=== PATIENT | female | born 1965 | race American Indian/Alaskan Native ===

== ENCOUNTER 2019-08-18 09:47 | Inpatient (IN) | payer MEDICARE ==
[2019-08-18 10:24] LABS: Hematocrit 38.7 % (30.3-42.9); Hemoglobin 13.2 gm/dl (10.1-14.3); Mean Corpuscular HGB Conc 34 % (30-34); Mean Corpuscular Volume 96 fl (79-97); Platelet Count 230 K/mm3 (140-440); Red Blood Count 4.02 M/mm3 (3.65-5.03); Red Cell Distribution Width 14.4 % (13.2-15.2)
--- NOTE | 2019-08-18 10:29 | Short Stay Summary ---
Short Stay Documentation Date of service: 08/18/19 Narrative H&P: Left 5th ulcer with gangrene - History Principal diagnosis: PAD with left toe ulcer H&P: obtained from office Past Medical History: arthritis, diabetes, hyperlipidemia Past Surgical History: Other (Arteriogram) - Allergies and Medications Current Medications: Allergies No Known Allergies Allergy (Unverified 05/12/14 10:37) Home Medications Medication Instructions Recorded Confirmed Last Taken Type Acetaminophen/Codeine [Tylenol #3] 1 tab PO Q6H PRN #14 tab 01/22/15 Unknown Rx Ibuprofen [Motrin] 600 mg PO Q8H PRN #60 tablet 01/22/15 Unknown Rx Sulfamethoxazole/Trimethoprim 1 each PO BID #20 tablet 01/22/15 Unknown Rx [Bactrim DS TAB] Active Medications Sodium Chloride (Nacl 0.9% 500 Ml) 500 mls @ 50 mls/hr IV DIRECT AELXEI - Physical exam General appearance: no acute distress HEENT: PERRLA Lungs: Clear to auscultation Breasts: deferred Heart: Regular rate Gastrointestinal: normal Female Genitourinary: deferred Rectal Exam: deferred Extremities: No edema, abnormal (Bilateral DP 1+. Non-palpable left PT. 1+ right PT. Left 5th toe dry gangrene) Neurological: Normal speech, Sensation intact - Brief post op/procedure progress note Date of procedure: 08/18/19 Pre-op diagnosis: Left 5th ulcer and gangrene Post-op diagnosis: same Procedure: Left arteriogram with revascularization tPA infusion with EKOS overnight. Anesthesia: MAC Estimated blood loss: minimal Pathology: none Condition: stable - Hospital course Hospital course: Admit to ICU for infustion of tPA - Disposition Condition at discharge: Undetermined Short Stay Discharge Plan Follow up with: BABAK DOTY MD [Primary Care Provider] - 7 Days
[2019-08-18] MEDS: SODIUM CHLORIDE 0.9% 500 ML 500 ML IV SCH ×2 (10:35→11:08)
[2019-08-18 10:39] LABS: Calcium 9.8 mg/dL (8.4-10.2)
--- NOTE | 2019-08-18 10:50 | Anesthesia Consultation ---
Anesthesia Consult and Med Hx Date of service: 08/18/19 - Airway Anesthetic Teeth Evaluation: Edentulous ROM Head & Neck: Adequate Mental/Hyoid Distance: Adequate Mallampati Class: Class II Intubation Access Assessment: Probably Good - Pre-Operative Health Status ASA Pre-Surgery Classification: ASA3 Proposed Anesthetic Plan: MAC - Pulmonary Hx Smoking: Yes (1 pack/day x 30 years) Hx Asthma: Yes - Cardiovascular System Hx Hypertension: Yes Hx Coronary Artery Disease: No (high cholesterol) Hx Peripheral Vascular Disease: Yes - Central Nervous System Hx Psychiatric Problems: Yes (depression/anxiety) - Endocrine Hx Insulin Dependent Diabetes: Yes - Other Systems Hx Cancer: No
[2019-08-18] MEDS ORDERED: INSULIN REGULAR, HUMAN 100 UNITS/1 ML SUB-Q ONE (10:51)
[2019-08-18 10:52] LABS: INR 0.97 (0.87-1.13)
[2019-08-18 10:53] LABS: Partial Thromboplastin Time 27.5 Sec. (24.2-36.6)
--- NOTE | 2019-08-18 10:53 | Anesthesia Day of Surgery ---
Anesthesia Day of Surgery - Day of Surgery Patient Examined: Yes Patient H&P Reviewed: Yes Patient is NPO: Yes
[2019-08-18] MEDS ORDERED: INSULIN REGULAR, HUMAN 100 UNITS/1 ML ONE (10:55)
[2019-08-18] MEDS ORDERED: HEPARIN/NS 5000 UNIT/500ML 1,000 ML IR ONE (11:30)
[2019-08-18] MEDS ORDERED: LIDOCAINE MPF (2%) 20 MG/1 ML VIAL 5 ML ONE (11:38)
[2019-08-18] MEDS ORDERED: MIDAZOLAM 2 MG/2 ML INJ ONE (11:38)
[2019-08-18] MEDS ORDERED: HYDROmorphone 1 MG/1 ML INJ ONE (11:38)
[2019-08-18] MEDS: LIDOCAINE 1%/EPINEPHRINE 1:100,000 VIAL (20 ML) INFILTRATI ONE ×3 (11:48→14:01)
[2019-08-18] MEDS: HEPARIN 10,000 UNITS/10 ML VIAL ONE ×6 (12:17→16:09)
[2019-08-18] MEDS ORDERED: HEPARIN/NS 5000 UNIT/500ML 500 ML IR ONE ×2 (14:01→14:36)
[2019-08-18] MEDS ORDERED: NITROGLYCERIN SYRINGE 3 ML ONE ×2 (15:12→15:57)
[2019-08-18] MEDS ORDERED: HEPARIN 10,000 UNITS/10 ML VIAL ONE (16:09)
[2019-08-18] MEDS ORDERED: ceFAZolin/Water 2 GM/20 ML 2 GM/20 ML SYRINGE IV ONE (16:19)
[2019-08-18] MEDS ORDERED: SODIUM CHLORIDE 0.9% 1000 ML 1,000 ML ONE (16:21)
[2019-08-18] MEDS ORDERED: ALTEPLASE 2 MG INJ ONE (16:30)
[2019-08-18] MEDS ORDERED: SODIUM CHLORIDE 0.9% 1000 ML 1,000 ML EKOSCLUMEN SCH (16:30)
[2019-08-18] MEDS ORDERED: SODIUM CHLORIDE 0.9% 1000 ML 1,000 ML SHEATH SCH (16:30)
[2019-08-18] MEDS ORDERED: WATER FOR INJ Sterile (PF) 10 ML ONE (16:30)
[2019-08-18] MEDS: ALTEPLASE 2 MG INJ ONE (16:35)
[2019-08-18] MEDS ORDERED: ALTEPLASE 20 MG in SODIUM CHLORIDE 0.9% 500 ML 500 ML EKOSDLUMEN SCH (17:00)
[2019-08-18] MEDS ORDERED: HEPARIN/ 0.45% NACL DRIP 25,000 UNIT/500 ML BAG SHEATH SCH (17:00)
--- NOTE | 2019-08-18 17:08 | History and Physical Report ---
History of Present Illness Date of examination: 08/18/19 Date of admission: 08/18/19 16:48 Chief complaint: Left 5th toe ulcer/gangrene History of present illness: Patient has 3 month history of progressive ulceration and gangrene of left 5th following having a pedicure. Has not been healing. Has associated pain. Underwent attempted revascularization procedure today in slab inspector with atherectomy and balloon angioplasty. Evidence for persistent thrombus in the lef t AT therefore infustion of tPA with EKOS was elected overnight. Past History Past Medical History: arthritis, diabetes, hyperlipidemia Past Surgical History: Other (Arteriogram) Social history: single, smoking Medications and Allergies Allergies Allergy/AdvReac Type Severity Reaction Status Date / Time No Known Allergies Allergy Unverified 05/12/14 10:37 Home Medications Medication Instructions Recorded Confirmed Last Taken Type Pen Needle, Diabetic [Pen Needle] 34 mg SUB-Q TID 08/18/19 08/18/19 08/17/19 History Sertraline [Zoloft] 100 mg PO QDAY 08/18/19 08/18/19 08/17/19 History 1 tab Simvastatin 10 mg PO DAILY 08/18/19 08/18/19 08/17/19 History 1 tab Triamterene/Hydrochlorothiazid 12.5 mg PO DAILY 08/18/19 08/18/19 08/17/19 History [Triamterene-Hctz 37.5-25 mg Tb] 1 tab glipiZIDE [Glucotrol] 10 mg PO DAILY 08/18/19 08/18/19 08/17/19 History 1 tab levoFLOXacin [Levofloxacin] 500 mg PO DAILY 08/18/19 08/18/19 08/17/19 History 1 tab Active Meds: Active Medications Sodium Chloride (Nacl 0.9% 500 Ml) 500 mls @ 50 mls/hr IV DIRECT ALEXEI Last Admin: 08/18/19 11:08 Dose: 50 mls/hr Documented by: Alteplase, Recombinant 20 mg/ (Sodium Chloride) 500 mls @ 25 mls/hr EKOSDLUMEN DIRECT ALEXEI Sodium Chloride (Nacl 0.9% 1000 Ml) 1,000 mls @ 30 mls/hr SHEATH DIRECT ALEXEI Sodium Chloride (Nacl 0.9% 1000 Ml) 1,000 mls @ 35 mls/hr EKOSCLUMEN DIRECT ALEXEI Heparin Sodium/Sodium Chloride (Heparin/ 0.45% Nacl-25,000 Unit/500 Ml) 25,000 unit in 500 mls @ 10 mls/hr SHEATH DIRECT ALEXEI; Protocol Review of Systems All systems: negative - Cardiovascular other (Diminished pulses in her left foot. Left 5th toe and base dry gangrene.) Exam Vital Signs Resp 16 08/18/19 10:24 Results - Results Labs: Diabetes panel 08/18/19 Range/Units 10:17 Sodium 138 (137-145) mmol/L Potassium 4.8 (3.6-5.0) mmol/L Chloride 100.8 (98-107) mmol/L Carbon Dioxide 26 (22-30) mmol/L BUN 22 H (7-17) mg/dL Creatinine 1.2 (0.7-1.2) mg/dL Glucose 318 H (65-100) mg/dL Calcium 9.8 (8.4-10.2) mg/dL Calcium panel 08/18/19 Range/Units 10:17 Calcium 9.8 (8.4-10.2) mg/dL Pituitary panel 08/18/19 Range/Units 10:17 Sodium 138 (137-145) mmol/L Potassium 4.8 (3.6-5.0) mmol/L Chloride 100.8 (98-107) mmol/L Carbon Dioxide 26 (22-30) mmol/L BUN 22 H (7-17) mg/dL Creatinine 1.2 (0.7-1.2) mg/dL Glucose 318 H (65-100) mg/dL Calcium 9.8 (8.4-10.2) mg/dL Adrenal panel 08/18/19 Range/Units 10:17 Sodium 138 (137-145) mmol/L Potassium 4.8 (3.6-5.0) mmol/L Chloride 100.8 (98-107) mmol/L Carbon Dioxide 26 (22-30) mmol/L BUN 22 H (7-17) mg/dL Creatinine 1.2 (0.7-1.2) mg/dL Glucose 318 H (65-100) mg/dL Calcium 9.8 (8.4-10.2) mg/dL Assessment and Plan 1. Left 5th toe ulcer with dry gangrene. 2. Extensive peripheral vascular disease 3. Distal thrombosis of the anterior tibial artery- tpa infusion with EKOS overnight. 4. Re-evaluate in the morning for further intervention if needed.
[2019-08-18] MEDS ORDERED: HEPARIN/ 0.45% NACL DRIP 25,000 UNIT/500 ML BAG ONE (17:09)
--- NOTE | 2019-08-18 17:52 | Post Anesthesia Evaluation ---
- Post Anesthesia Evaluation Patient Participated: Yes Airway Patent: Yes Stable Respiratory Function: Yes Nausea/Vomiting: No Temp > 96.8F: Yes Pain Manageable: Yes Adequeate Hydration: Yes Anesthesia Complications: No Other Comments: Patient transported to ICU (for overnight monitoring of intra- arterial catheter per proceduralist orders) with monitors, VS stable, awake and alert. See anes record.
[2019-08-18] MEDS: MORPHINE 4 MG/1 ML INJ IV PRN ×2 (19:45→23:59)
[2019-08-18] MEDS: ONDANSETRON 4 MG/2 ML INJ IV PRN ×2 (19:50→23:59)
[2019-08-18] MEDS ORDERED: NON-FORMULARY EACH (Simvastatin [Simvastatin] 10 MG) PO SCH (20:30)
[2019-08-18 21:01] LABS: Hematocrit 33.2 % (30.3-42.9); Hemoglobin 11.9 gm/dl (10.1-14.3); Mean Corpuscular HGB Conc 36 % (30-34); Mean Corpuscular Volume 96 fl (79-97); Platelet Count 210 K/mm3 (140-440); Red Blood Count 3.46 M/mm3 (3.65-5.03); Red Cell Distribution Width 14.5 % (13.2-15.2)
[2019-08-18] MEDS: PRAVASTATIN 20 MG TAB PO SCH (21:24)
[2019-08-18] MEDS: SERTRALINE 100 MG TAB PO SCH (21:25)
[2019-08-18] MEDS: TRIAMTER/HCTZ 37.5-25 MG TAB PO SCH (21:30)
[2019-08-18] MEDS ORDERED: INSULIN LISPRO 100 UNIT/ML SUB-Q SCH (22:00)
[2019-08-19] MEDS: diphenhydrAMINE 50 MG/ML VIAL IV PRN ×3 (00:18→16:38)
[2019-08-19 01:36] LABS: Hematocrit 31.3 % (30.3-42.9); Hemoglobin 10.8 gm/dl (10.1-14.3); Mean Corpuscular HGB Conc 35 % (30-34); Mean Corpuscular Volume 97 fl (79-97); Platelet Count 173 K/mm3 (140-440); Red Blood Count 3.24 M/mm3 (3.65-5.03); Red Cell Distribution Width 14.2 % (13.2-15.2)
[2019-08-19 05:24] LABS: Hematocrit 30.8 % (30.3-42.9); Hemoglobin 10.7 gm/dl (10.1-14.3); Mean Corpuscular HGB Conc 35 % (30-34); Mean Corpuscular Volume 97 fl (79-97); Platelet Count 174 K/mm3 (140-440); Red Blood Count 3.19 M/mm3 (3.65-5.03); Red Cell Distribution Width 14.2 % (13.2-15.2)
[2019-08-19] MEDS ORDERED: HEPARIN/NS 5000 UNIT/500ML 1,000 ML IR ONE (07:40)
[2019-08-19] MEDS ORDERED: NITROGLYCERIN SYRINGE 3 ML ONE (07:41)
[2019-08-19] MEDS ORDERED: PHENYLEPHRINE/NS 1,000 MCG/10 ML SYRINGE (OR USE) IV ONE (07:44)
[2019-08-19] MEDS ORDERED: GLYCOPYRROLATE 0.4 MG/2 ML INJ ONE (07:44)
[2019-08-19] MEDS ORDERED: propofoL 200 MG/20 ML VIAL IV ONE ×6 (07:45→10:43)
[2019-08-19] MEDS ORDERED: fentaNYL 100 MCG/2 ML INJ ONE (07:45)
[2019-08-19] MEDS ORDERED: ePHEDrine SULFATE 50 MG/1 ML INJ ONE (07:45)
[2019-08-19] MEDS ORDERED: HYDROmorphone 1 MG/1 ML INJ ONE (07:45)
--- NOTE | 2019-08-19 08:14 | Consultation ---
History of Present Illness - Reason for Consult Consult date: 08/18/19 Medical management Requesting physician: ZION ROBIN - History of Present Illness Patient has 3 month history of progressive ulceration and gangrene of left 5th following having a pedicure. Has not been healing. Has associated pain. Underwent attempted revascularization procedure today in laboratory technician with atherectomy and balloon angioplasty. Evidence for persistent thrombus in the left AT therefore infustion of tPA with EKOS was elected overnight. Past History Past Medical History: arthritis, diabetes, hyperlipidemia Past Surgical History: Other (Arteriogram) Social history: single, smoking Family history: hypertension Medications and Allergies Allergies Allergy/AdvReac Type Severity Reaction Status Date / Time No Known Allergies Allergy Unverified 05/12/14 10:37 Home Medications Medication Instructions Recorded Confirmed Last Taken Type Pen Needle, Diabetic [Pen Needle] 34 mg SUB-Q TID 08/18/19 08/18/19 08/17/19 History Sertraline [Zoloft] 100 mg PO QDAY 08/18/19 08/18/19 08/17/19 History 1 tab Simvastatin 10 mg PO DAILY 08/18/19 08/18/19 08/17/19 History 1 tab Triamterene/Hydrochlorothiazid 12.5 mg PO DAILY 08/18/19 08/18/19 08/17/19 History [Triamterene-Hctz 37.5-25 mg Tb] 1 tab glipiZIDE [Glucotrol] 10 mg PO DAILY 08/18/19 08/18/19 08/17/19 History 1 tab levoFLOXacin [Levofloxacin] 500 mg PO DAILY 08/18/19 08/18/19 08/17/19 History 1 tab Active Meds: Active Medications Diphenhydramine HCl (Benadryl) 25 mg IV Q6H PRN PRN Reason: Itching Last Admin: 08/19/19 00:18 Dose: 25 mg Documented by: Sodium Chloride (Nacl 0.9% 500 Ml) 500 mls @ 50 mls/hr IV DIRECT ALEXEI Last Admin: 08/18/19 11:08 Dose: 50 mls/hr Documented by: Alteplase, Recombinant 20 mg/ (Sodium Chloride) 500 mls @ 25 mls/hr EKOSDLUMEN DIRECT ALEXEI Sodium Chloride (Nacl 0.9% 1000 Ml) 1,000 mls @ 30 mls/hr SHEATH DIRECT ALEXEI Sodium Chloride (Nacl 0.9% 1000 Ml) 1,000 mls @ 35 mls/hr EKOSCLUMEN DIRECT ALEXEI Heparin Sodium/Sodium Chloride (Heparin/ 0.45% Nacl-25,000 Unit/500 Ml) 25,000 unit in 500 mls @ 10 mls/hr SHEATH DIRECT ALEXEI; Protocol Insulin Human Lispro (Humalog) 0 unit SUB-Q ACHS ALEXEI; Protocol Last Admin: 08/18/19 21:25 Dose: 2 unit Documented by: Morphine Sulfate (Morphine) 4 mg IV Q4H PRN PRN Reason: Pain , Severe (7-10) Last Admin: 08/18/19 23:59 Dose: 4 mg Documented by: Ondansetron HCl (Zofran) 4 mg IV Q4H PRN PRN Reason: Nausea And Vomiting Last Admin: 08/18/19 23:59 Dose: 4 mg Documented by: Pravastatin Sodium (Pravachol) 20 mg PO QHS [facility] Last Admin: 08/18/19 21:24 Dose: 20 mg Documented by: Sertraline HCl (Zoloft) 100 mg PO QDAY [facility] Last Admin: 08/18/19 21:25 Dose: 100 mg Documented by: Triamterene/HCTZ (Maxzide-25) 1 each PO DAILY [facility] Last Admin: 08/18/19 21:30 Dose: 1 each Documented by: Review of Systems All systems: negative Integumentary: color changes (L foot Fifth toe) Exam - Constitutional Vitals: Temp Pulse Resp BP Pulse Ox 98.1 F 85 18 142/61 94 08/19/19 03:38 08/19/19 05:00 08/19/19 05:00 08/19/19 06:00 08/19/19 06:00 General appearance: Present: no acute distress, well-nourished - EENT Eyes: Present: PERRL ENT: hearing intact, clear oral mucosa - Neck Neck: Present: supple, normal ROM - Respiratory Respiratory effort: normal Respiratory: bilateral: CTA - Cardiovascular Heart rate: 78 Rhythm: regular Heart Sounds: Present: S1 & S2. Absent: rub, click - Extremities Extremities: pulses symmetrical, No edema Peripheral Pulses: within normal limits - Abdominal General gastrointestinal: Present: soft, non-tender, non-distended, normal bowel sounds Female genitourinary: Present: normal - Integumentary Integumentary: Present: clear, warm, dry - Musculoskeletal Musculoskeletal: gait normal, strength equal bilaterally - Psychiatric Psychiatric: appropriate mood/affect, intact judgment & insight - Neurologic Neurologic: CNII-XII intact, moves all extremities - Allied Health Allied health notes reviewed: nursing, case management Results - Labs CBC & Chem 7: 08/19/19 04:27 08/18/19 10:17 Labs: Abnormal lab results 08/18/19 08/18/19 08/18/19 Range/Units 10:17 10:17 18:17 RBC (3.65-5.03) M/mm3 MCH 33 H (28-32) pg MCHC (30-34) % Fibrinogen (211-480) mg/dl BUN 22 H (7-17) mg/dL Glucose 318 H (65-100) mg/dL POC Glucose 166 H (70-105) 08/18/19 08/18/19 08/18/19 Range/Units 19:51 19:51 21:28 RBC 3.46 L (3.65-5.03) M/mm3 MCH 34 H (28-32) pg MCHC 36 H (30-34) % Fibrinogen 790 H (211-480) mg/dl BUN (7-17) mg/dL Glucose (65-100) mg/dL POC Glucose 174 H (70-105) 08/18/19 08/19/19 08/19/19 Range/Units 22:17 00:55 04:27 RBC 3.24 L 3.19 L (3.65-5.03) M/mm3 MCH 33 H 34 H (28-32) pg MCHC 35 H 35 H (30-34) % Fibrinogen (211-480) mg/dl BUN (7-17) mg/dL Glucose (65-100) mg/dL POC Glucose 160 H (70-105) Assessment and Plan - Patient Problems (1) PAD (peripheral artery disease) Current Visit: Yes Status: Acute Plan to address problem: On EKOS Defer to IR (2) HTN (hypertension) Current Visit: Yes Status: Chronic Qualifiers: Hypertension type: essential hypertension Qualified Code(s): I10 - Essential (primary) hypertension Plan to address problem: Cont Maxzide (3) T2DM (type 2 diabetes mellitus) Current Visit: Yes Status: Chronic Qualifiers: 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
[2019-08-19] MEDS: LIDOCAINE (2%) 20 MG/1 ML VIAL 20 ML MDV INFILTRATI ONE ×2 (08:21→08:23)
[2019-08-19] MEDS ORDERED: ceFAZolin/Water 2 GM/20 ML 2 GM/20 ML SYRINGE IV ONE (08:25)
[2019-08-19] MEDS: HEPARIN 10,000 UNITS/10 ML VIAL ONE ×4 (08:34→10:42)
[2019-08-19] MEDS ORDERED: NITROGLYCERIN SYRINGE 9 ML ONE (08:35)
--- NOTE | 2019-08-19 09:23 | Anesthesia Day of Surgery ---
Anesthesia Day of Surgery - Day of Surgery Patient Examined: Yes Patient H&P Reviewed: Yes Patient is NPO: Yes
--- NOTE | 2019-08-19 09:25 | Event Note ---
Date: 08/19/19 Patient POD1 s/p revascularization procedure in laborer tin can with EKOS therapy catheter placement. Patient was taken to ICU for monitoring of catheter overnight. Now returning to laborer tin can for removal of catheter and possible further endovascular intervention. Plan MAC anesthetic. ASA 3. See Anes consult note dated 08/18/19 for further details.
[2019-08-19] MEDS ORDERED: HEPARIN/NS 5000 UNIT/500ML 500 ML IR ONE ×2 (10:05→11:06)
[2019-08-19] MEDS ORDERED: CLOPIDOGREL 300 MG TAB ONE (11:22)
--- NOTE | 2019-08-19 11:25 | Progress Note ---
Assessment and Plan 1. Left 5th toe ulcer with dry gangrene. 2. Extensive peripheral vascular disease 3. Distal thrombosis of the anterior tibial artery- tpa infusion with EKOS overnight completed. 4. Further revascularization performed with angioplasty. Good flow to foot established. 5. Will observe patient overnight and plan for discharge tomorrow morning. Subjective Date of service: 08/19/19 Principal diagnosis: PAD with left toe ulcer Interval history: Revascularizatioin perfomred today with arteriogram and balloon angioplasty Objective - Exam Narrative Exam: Patient was experiencing pain in the left foot following overnight infusion. - Constitutional Vitals: Vital Signs - 12hr 08/18/19 08/18/19 08/18/19 23:30 23:40 23:50 Temperature 99.4 F Pulse Rate 91 H 85 Respiratory 35 H 52 H 21 Rate Blood Pressure 143/65 143/65 162/70 O2 Sat by Pulse 93 94 96 Oximetry 08/19/19 08/19/19 08/19/19 00:00 00:10 00:20 Temperature Pulse Rate 94 H 83 104 H Respiratory 20 29 H 12 Rate Blood Pressure 164/71 164/71 164/71 O2 Sat by Pulse 97 93 98 Oximetry 08/19/19 08/19/19 08/19/19 00:25 00:30 01:00 Temperature Pulse Rate 83 89 Respiratory 18 16 17 Rate Blood Pressure 164/71 127/66 O2 Sat by Pulse 98 94 93 Oximetry 08/19/19 08/19/19 08/19/19 01:30 02:00 02:30 Temperature Pulse Rate 101 H 86 Respiratory 22 17 13 Rate Blood Pressure 127/66 151/79 151/79 O2 Sat by Pulse 94 94 95 Oximetry 08/19/19 08/19/19 08/19/19 03:00 03:30 03:38 Temperature 98.1 F Pulse Rate 97 H Respiratory 16 Rate Blood Pressure 152/72 152/72 O2 Sat by Pulse 94 96 Oximetry 08/19/19 08/19/19 08/19/19 04:00 04:30 05:00 Temperature Pulse Rate 99 H 87 85 Respiratory 13 17 18 Rate Blood Pressure 155/65 155/65 142/61 O2 Sat by Pulse 95 91 92 Oximetry 08/19/19 08/19/19 05:30 06:00 Temperature Pulse Rate Respiratory Rate Blood Pressure 142/61 142/61 O2 Sat by Pulse 94 94 Oximetry Extremity abnormal: other (Left 5th toe gangrene with ulceration. Dopplerable left DP and PT post revascularization) - Labs CBC & Chem 7: 08/19/19 04:27 08/18/19 10:17 Labs: Abnormal lab results 08/18/19 08/18/19 08/18/19 Range/Units 18:17 19:51 19:51 RBC 3.46 L (3.65-5.03) M/mm3 MCH 34 H (28-32) pg MCHC 36 H (30-34) % Fibrinogen 790 H (211-480) mg/dl POC Glucose 166 H (70-105) 08/18/19 08/18/19 08/19/19 Range/Units 21:28 22:17 00:55 RBC 3.24 L (3.65-5.03) M/mm3 MCH 33 H (28-32) pg MCHC 35 H (30-34) % Fibrinogen (211-480) mg/dl POC Glucose 174 H 160 H (70-105) 08/19/19 Range/Units 04:27 RBC 3.19 L (3.65-5.03) M/mm3 MCH 34 H (28-32) pg MCHC 35 H (30-34) % Fibrinogen (211-480) mg/dl POC Glucose (70-105) Medications & Allergies - Medications Allergies/Adverse Reactions: Allergies No Known Allergies Allergy (Unverified 05/12/14 10:37) Home Medications: Home Medications Medication Instructions Recorded Confirmed Last Taken Type Pen Needle, Diabetic [Pen Needle] 34 mg SUB-Q TID 08/18/19 08/18/19 08/17/19 History Sertraline [Zoloft] 100 mg PO QDAY 08/18/19 08/18/19 08/17/19 History 1 tab Simvastatin 10 mg PO DAILY 08/18/19 08/18/19 08/17/19 History 1 tab Triamterene/Hydrochlorothiazid 12.5 mg PO DAILY 08/18/19 08/18/19 08/17/19 History [Triamterene-Hctz 37.5-25 mg Tb] 1 tab glipiZIDE [Glucotrol] 10 mg PO DAILY 08/18/19 08/18/19 08/17/19 History 1 tab levoFLOXacin [Levofloxacin] 500 mg PO DAILY 08/18/19 08/18/1908/16/20 History 1 tab Active Medications: Generic Name Dose Route Start Last Admin Trade Name Freq PRN Reason Stop Dose Admin Clopidogrel Bisulfate 75 mg 08/20/19 10:00 Plavix PO QDAY ALEXEI Diphenhydramine HCl 25 mg 08/19/19 00:07 08/19/19 00:18 Benadryl IV 25 mg Q6H PRN Administration Itching Sodium Chloride 500 mls @ 50 mls/hr 08/18/19 11:00 08/18/19 11:08 Nacl 0.9% 500 Ml IV 50 mls/hr DIRECT ALEXEI Administration Alteplase, Recombinant 20 mg/ 500 mls @ 25 mls/hr 08/18/19 17:00 Sodium Chloride EKOSDLUMEN DIRECT ALEXEI Sodium Chloride 1,000 mls @ 30 mls/hr 08/18/19 16:30 Nacl 0.9% 1000 Ml SHEATH DIRECT ALEXEI Sodium Chloride 1,000 mls @ 35 mls/hr 08/18/19 16:30 Nacl 0.9% 1000 Ml EKOSCLUMEN DIRECT ALEXEI Heparin Sodium/Sodium Chloride 25,000 unit in 500 mls @ 10 mls/hr 08/18/19 17:00 Heparin/ 0.45% Nacl-25,000 Unit/500 Ml SHEATH DIRECT ALEXEI Protocol 500 UNITS/HR Insulin Human Lispro 0 unit 08/18/19 22:00 08/18/19 21:25 Humalog SUB-Q 2 unit ACHS ALEXEI Administration Protocol Morphine Sulfate 4 mg 08/18/19 17:27 08/18/19 23:59 Morphine IV 4 mg Q4H PRN Administration Pain , Severe (7-10) Ondansetron HCl 4 mg 08/18/19 17:29 08/18/19 23:59 Zofran IV 4 mg Q4H PRN Administration Nausea And Vomiting Pravastatin Sodium 20 mg 08/18/19 20:30 08/18/19 21:24 Pravachol PO 20 mg QHS ALEXEI Administration Sertraline HCl 100 mg 08/18/19 21:00 08/18/19 21:25 Zoloft PO 100 mg QDAY ALEXEI Administration Triamterene/HCTZ 1 each 08/18/19 21:00 08/18/19 21:30 Maxzide-25 PO 1 each DAILY ALEXEI Administration
[2019-08-19] MEDS ORDERED: diphenhydrAMINE 50 MG/ML VIAL ONE ×2 (11:35→12:21)
[2019-08-19] MEDS ORDERED: FAMOTIDINE 20 MG/2 ML INJ IV ONE (11:42)
[2019-08-19] MEDS: FAMOTIDINE 20 MG/2 ML INJ IV SCH (11:43)
[2019-08-19] MEDS ORDERED: diphenhydrAMINE 50 MG/ML VIAL IV ONE (12:24)
--- NOTE | 2019-08-19 13:16 | Post Anesthesia Evaluation ---
- Post Anesthesia Evaluation Patient Participated: Yes Airway Patent: Yes Stable Respiratory Function: Yes Nausea/Vomiting: No Temp > 96.8F: Yes Pain Manageable: Yes Adequeate Hydration: Yes Anesthesia Complications: No Other Comments: Patient complained of itching and developed rash on neck and chest after arrival to recovery. No respiratory symptoms or HD changes. Per report, patient had also complained of itching overnight in various locations. Unclear of cause of itching/rash. Symptoms improved with diphenydramine and pepcid IV.
[2019-08-19] MEDS ORDERED: SODIUM CHLORIDE 0.9% 1000 ML 1,000 ML ONE (13:28)
--- NOTE | 2019-08-19 13:44 | Consultation ---
History of Present Illness - Reason for Consult Consult date: 08/19/19 Post EKOS therapy Requesting physician: ZION ROBIN - History of Present Illness 53 y/o female with PVD, admitted post EKOS after coming in for a 3 month history of progressive ulceration and gangreen of the left 5th metatarsal following a pedicure. Revascularization was attempted but patient ultimately required EKOS with TPA infusion overnight. Patient currently off the floor having EKOS catheters removed. Past History Past Medical History: arthritis, diabetes, hyperlipidemia, other (PVD) Past Surgical History: Other (Arteriogram) Social history: single, smoking Family history: hypertension Medications and Allergies Allergies Allergy/AdvReac Type Severity Reaction Status Date / Time No Known Allergies Allergy Unverified 05/12/14 10:37 Home Medications Medication Instructions Recorded Confirmed Last Taken Type Pen Needle, Diabetic [Pen Needle] 34 mg SUB-Q TID 08/18/19 08/18/19 08/17/19 History Sertraline [Zoloft] 100 mg PO QDAY 08/18/19 08/18/19 08/17/19 History 1 tab Simvastatin 10 mg PO DAILY 08/18/19 08/18/19 08/17/19 History 1 tab Triamterene/Hydrochlorothiazid 12.5 mg PO DAILY 08/18/19 08/18/19 08/17/19 History [Triamterene-Hctz 37.5-25 mg Tb] 1 tab glipiZIDE [Glucotrol] 10 mg PO DAILY 08/18/19 08/18/19 08/17/19 History 1 tab levoFLOXacin [Levofloxacin] 500 mg PO DAILY 08/18/19 08/18/19 08/17/19 History 1 tab Active Meds: Active Medications Clopidogrel Bisulfate (Plavix) 75 mg PO QDAY [facility] Diphenhydramine HCl (Benadryl) 25 mg IV Q6H PRN PRN Reason: Itching Last Admin: 08/19/19 11:38 Dose: 25 mg Documented by: Famotidine (Pepcid) 20 mg IV QDAY [facility] Last Admin: 08/19/19 11:43 Dose: 20 mg Documented by: Sodium Chloride (Nacl 0.9% 500 Ml) 500 mls @ 50 mls/hr IV DIRECT ALEXEI Last Admin: 08/18/19 11:08 Dose: 50 mls/hr Documented by: Alteplase, Recombinant 20 mg/ (Sodium Chloride) 500 mls @ 25 mls/hr EKOSDLUMEN DIRECT ALEXEI Sodium Chloride (Nacl 0.9% 1000 Ml) 1,000 mls @ 30 mls/hr SHEATH DIRECT ALEXEI Sodium Chloride (Nacl 0.9% 1000 Ml) 1,000 mls @ 35 mls/hr EKOSCLUMEN DIRECT ALEXEI Heparin Sodium/Sodium Chloride (Heparin/ 0.45% Nacl-25,000 Unit/500 Ml) 25,000 unit in 500 mls @ 10 mls/hr SHEATH DIRECT ALEXEI; Protocol Insulin Human Lispro (Humalog) 0 unit SUB-Q ACHS ALEXEI; Protocol Last Admin: 08/18/19 21:25 Dose: 2 unit Documented by: Morphine Sulfate (Morphine) 4 mg IV Q4H PRN PRN Reason: Pain , Severe (7-10) Last Admin: 08/18/19 23:59 Dose: 4 mg Documented by: Ondansetron HCl (Zofran) 4 mg IV Q4H PRN PRN Reason: Nausea And Vomiting Last Admin: 08/18/19 23:59 Dose: 4 mg Documented by: Pravastatin Sodium (Pravachol) 20 mg PO QHS [facility] Last Admin: 08/18/19 21:24 Dose: 20 mg Documented by: Sertraline HCl (Zoloft) 100 mg PO QDAY [facility] Last Admin: 08/18/19 21:25 Dose: 100 mg Documented by: Triamterene/HCTZ (Maxzide-25) 1 each PO DAILY [facility] Last Admin: 08/18/19 21:30 Dose: 1 each Documented by: Exam - Constitutional Vitals: Temp Pulse Resp BP Pulse Ox 97.7 F 97 H 17 119/61 97 08/19/19 11:59 08/19/19 13:00 08/19/19 13:00 08/19/19 13:00 08/19/19 13:00 Results - Labs CBC & Chem 7: 08/19/19 04:27 08/18/19 10:17 Labs: Abnormal lab results 08/18/19 08/18/19 08/18/19 Range/Units 18:17 19:51 19:51 RBC 3.46 L (3.65-5.03) M/mm3 MCH 34 H (28-32) pg MCHC 36 H (30-34) % Activated Clotting Time (74-137) Fibrinogen 790 H (211-480) mg/dl POC Glucose 166 H (70-105) 08/18/19 08/18/19 08/19/19 Range/Units 21:28 22:17 00:55 RBC 3.24 L (3.65-5.03) M/mm3 MCH 33 H (28-32) pg MCHC 35 H (30-34) % Activated Clotting Time (74-137) Fibrinogen (211-480) mg/dl POC Glucose 174 H 160 H (70-105) 08/19/19 08/19/19 Range/Units 04:27 13:41 RBC 3.19 L (3.65-5.03) M/mm3 MCH 34 H (28-32) pg MCHC 35 H (30-34) % Activated Clotting Time 208 H (74-137) Fibrinogen (211-480) mg/dl POC Glucose (70-105) Assessment and Plan 53 y/o with diabetes and nonhealing ulcer with gangrene secondary to thrombus, s/p EKOS 1. Follow up vascular recs 2. Should be stable for transfer once catheter is out 3. Will sign off once out of unit 4. Suggest continuing diabetic as well as Anti Hypertensive therapy. Thank you for this consult.
[2019-08-19] MEDS: ALTEPLASE 2 MG INJ ONE (13:45)
--- NOTE | 2019-08-19 16:13 | Progress Note ---
Assessment and Plan Assessment and plan: Patient has 53-year-old female with history of progressive ulceration and gangrene of left 5th following having a pedicure. Has not been healing. Has associated pain. 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 Evidence for persistent thrombus in the left AT therefore infustion of tPA with EKOS was elected overnight. Peripheral arterial disease Progressive ulceration and gangrene of the left fifth toe Hypertension Type 2 diabetes mellitus Plan Further management per vascular recommendation. Status post [place] Continue blood pressure control and tight glucose control Wound care consultation. DVT and GI prophylaxis History Interval history: Patient seen and examined clinically stable head now to to the [place] [place] Hospitalist Physical - Physical exam Narrative exam: General appearance: Present: no acute distress, well-nourished lying in stretcher - EENT Eyes: Present: PERRL ENT: hearing intact, clear oral mucosa - Neck Neck: Present: supple, normal ROM - Respiratory Respiratory effort: normal Respiratory: bilateral: CTA - Cardiovascular Heart rate: 78 Rhythm: regular Heart Sounds: Present: S1 & S2. Absent: rub, click - Extremities Extremities: pulses symmetrical, No edema Peripheral Pulses: within normal limits - Abdominal General gastrointestinal: Present: soft, non-tender, non-distended, normal bowel sounds Female genitourinary: Present: normal - Integumentary Integumentary: Present: See wound care documentation. Poor wound healing noted. - Musculoskeletal Musculoskeletal: gait normal, strength equal bilaterally - Psychiatric Psychiatric: appropriate mood/affect, intact judgment & insight - Neurologic Neurologic: CNII-XII intact, moves all extremities - Allied Health Allied health notes reviewed: nursing, case management - Constitutional Vitals: Temp Pulse Resp BP Pulse Ox 97.7 F 96 H 13 109/54 98 08/19/19 11:59 08/19/19 15:00 08/19/19 15:00 08/19/19 15:00 08/19/19 15:00 General appearance: Present: no acute distress, well-nourished Results - Labs CBC & Chem 7: 08/19/19 04:27 08/18/19 10:17 Labs: Laboratory Last Values WBC 9.4 K/mm3 (4.5-11.0) 08/19/19 04:27 RBC 3.19 M/mm3 (3.65-5.03) L 08/19/19 04:27 Hgb 10.7 gm/dl (10.1-14.3) 08/19/19 04:27 Hct 30.8 % (30.3-42.9) 08/19/19 04:27 MCV 97 fl (79-97) 08/19/19 04:27 MCH 34 pg (28-32) H 08/19/19 04:27 MCHC 35 % (30-34) H 08/19/19 04:27 RDW 14.2 % (13.2-15.2) 08/19/19 04:27 Plt Count 174 K/mm3 (140-440) 08/19/19 04:27 PT 12.7 Sec. (12.2-14.9) 08/18/19 10:17 INR 0.97 (0.87-1.13) 08/18/19 10:17 APTT 27.5 Sec. (24.2-36.6) 08/18/19 10:17 Activated Clotting Time 175 (74-137) H 08/19/19 14:24 Fibrinogen 348 mg/dl (211-480) 08/19/19 04:27 Sodium 138 mmol/L (137-145) 08/18/19 10:17 Potassium 4.8 mmol/L (3.6-5.0) 08/18/19 10:17 Chloride 100.8 mmol/L (98-107) 08/18/19 10:17 Carbon Dioxide 26 mmol/L (22-30) 08/18/19 10:17 Anion Gap 16 mmol/L 08/18/19 10:17 BUN 22 mg/dL (7-17) H 08/18/19 10:17 Creatinine 1.2 mg/dL (0.7-1.2) 08/18/19 10:17 Estimated GFR 57 ml/min 08/18/19 10:17 BUN/Creatinine Ratio 18 % 08/18/19 10:17 Glucose 318 mg/dL (65-100) H 08/18/19 10:17 POC Glucose 160 (70-105) H 08/18/19 22:17 Calcium 9.8 mg/dL (8.4-10.2) 08/18/19 10:17 Underwood/IV: Voiding Method Bedpan IV Catheter Type [Left Forearm Peripheral IV ] Active Medications - Current Medications Current Medications: Generic Name Dose Route Start Last Admin Trade Name Freq PRN Reason Stop Dose Admin Clopidogrel Bisulfate 75 mg 08/20/19 10:00 Plavix PO QDAY ALEXEI Diphenhydramine HCl 25 mg 08/19/19 00:07 08/19/19 11:38 Benadryl IV 25 mg Q6H PRN Administration Itching Famotidine 20 mg 08/19/19 11:43 08/19/19 11:43 Pepcid IV 20 mg QDAY ALEXEI Administration Sodium Chloride 500 mls @ 50 mls/hr 08/18/19 11:00 08/18/19 11:08 Nacl 0.9% 500 Ml IV 50 mls/hr DIRECT ALEXEI Administration Morphine Sulfate 4 mg 08/18/19 17:27 08/18/19 23:59 Morphine IV 4 mg Q4H PRN Administration Pain , Severe (7-10) Ondansetron HCl 4 mg 08/18/19 17:29 08/18/19 23:59 Zofran IV 4 mg Q4H PRN Administration Nausea And Vomiting Pravastatin Sodium 20 mg 08/18/19 20:30 08/18/19 21:24 Pravachol PO 20 mg QHS ALEXEI Administration Sertraline HCl 100 mg 08/18/19 21:00 08/18/19 21:25 Zoloft PO 100 mg QDAY ALEXEI Administration Triamterene/HCTZ 1 each 08/18/19 21:00 08/18/19 21:30 Maxzide-25 PO 1 each DAILY ALEXEI Administration
[2019-08-19] MEDS ORDERED: ACETAMINOPHEN 325 MG TAB PO PRN (20:58)
[2019-08-19] MEDS: PRAVASTATIN 20 MG TAB PO SCH (21:25)
[2019-08-20] MEDS: MORPHINE 4 MG/1 ML INJ IV PRN ×2 (00:44→05:10)
--- NOTE | 2019-08-20 08:20 | Progress Note ---
Assessment and Plan 1. Left 5th toe ulcer with dry gangrene. 2. Extensive peripheral vascular disease 3. Distal thrombosis of the anterior tibial artery- tpa infusion with EKOS overnight completed. 4. Further revascularization performed with angioplasty. Good flow to foot established. 5. D/C to home 6. Script called in for plavix 75 mg daily as well as tramadol for pain 7. 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 F/U with us in one month Subjective Date of service: 08/20/19 Principal diagnosis: PAD with left toe ulcer Interval history: Patient had successful revascularization yesteday. She had an episode of bleeding from the groin access site last night after going to the bathroom. Nurse stated no hematoma and approximately 150-200 cc loss. Vitals were stable. Patient today resting comfortably with mild intermittent pains in her foot. States it feels much better today with no numbness or tingling. Objective - Exam Narrative Exam: Patient with mild intermittent pains in her left ankle and distal leg. Good feeling. No numbness or tingling. - Constitutional Vitals: Vital Signs - 12hr 08/19/19 08/19/19 08/19/19 20:57 21:25 22:00 Temperature 100.9 F H Pulse Rate 98 H 102 H Respiratory 20 20 Rate Blood Pressure 99/49 O2 Sat by Pulse 100 Oximetry 08/19/19 08/20/19 08/20/19 23:41 04:02 05:10 Temperature 99.8 F H 99.6 F Pulse Rate 94 H 88 Respiratory 18 18 20 Rate Blood Pressure 107/55 124/56 O2 Sat by Pulse 96 94 Oximetry General appearance: Present: no acute distress - EENT Eyes: PERRL ENT: hearing intact - Neck Neck: normal ROM - Respiratory Respiratory effort: normal - Cardiovascular Rhythm: regular Extremity abnormal: other (Left 5th ulcer and dry gangrene stable. Foot is warm with tenderness to touch. Sensation intact. Good capillary refill. Strong dopplerable DP and PT) - Gastrointestinal General gastrointestinal: Present: soft, non-tender Rectal Exam: deferred - Genitourinary Female genitourinary: deferred - Labs CBC & Chem 7: 08/19/19 04:27 08/18/19 10:17 Labs: Abnormal lab results 08/19/19 08/19/19 08/19/19 Range/Units 04:27 13:41 14:14 Activated Clotting Time 208 H 235 H (74-137) POC Glucose (70-105) Hemoglobin A1c 11.1 H (4-6) % 08/19/19 08/19/19 08/20/19 Range/Units 14:24 21:50 06:15 Activated Clotting Time 175 H (74-137) POC Glucose 228 H 150 H (70-105) Hemoglobin A1c (4-6) % Medications & Allergies - Medications Allergies/Adverse Reactions: Allergies No Known Allergies Allergy (Unverified 05/12/14 10:37) Home Medications: Home Medications Medication Instructions Recorded Confirmed Last Taken Type Pen Needle, Diabetic [Pen Needle] 34 mg SUB-Q TID 08/18/19 08/18/19 08/17/19 History Sertraline [Zoloft] 100 mg PO QDAY 08/18/19 08/18/19 08/17/19 History 1 tab Simvastatin 10 mg PO DAILY 08/18/19 08/18/19 08/17/19 History 1 tab Triamterene/Hydrochlorothiazid 12.5 mg PO DAILY 08/18/19 08/18/19 08/17/19 History [Triamterene-Hctz 37.5-25 mg Tb] 1 tab glipiZIDE [Glucotrol] 10 mg PO DAILY 08/18/19 08/18/19 08/17/19 History 1 tab levoFLOXacin [Levofloxacin] 500 mg PO DAILY 08/18/19 08/18/19 08/17/19 History 1 tab Active Medications: Generic Name Dose Route Start Last Admin Trade Name Freq PRN Reason Stop Dose Admin Acetaminophen 650 mg 08/19/19 20:58 08/19/19 21:25 Tylenol PO 650 mg Q6H PRN Administration Pain, Mild (1-3) Clopidogrel Bisulfate 75 mg 08/20/19 10:00 Plavix PO QDAY ALEEXI Diphenhydramine HCl 25 mg 08/19/19 00:07 08/19/19 16:38 Benadryl IV 25 mg Q6H PRN Administration Itching Famotidine 20 mg 08/19/19 11:43 08/19/19 11:43 Pepcid IV 20 mg QDAY ALEXEI Administration Sodium Chloride 500 mls @ 50 mls/hr 08/18/19 11:00 08/18/19 11:08 Nacl 0.9% 500 Ml IV 50 mls/hr DIRECT ALEXEI Administration Morphine Sulfate 4 mg 08/18/19 17:27 08/20/19 05:10 Morphine IV 4 mg Q4H PRN Administration Pain , Severe (7-10) Ondansetron HCl 4 mg 08/18/19 17:29 08/18/19 23:59 Zofran IV 4 mg Q4H PRN Administration Nausea And Vomiting Pravastatin Sodium 20 mg 08/18/19 20:30 08/19/19 21:25 Pravachol PO 20 mg QHS ALEXEI Administration Sertraline HCl 100 mg 08/18/19 21:00 08/18/19 21:25 Zoloft PO 100 mg QDAY ALEXEI Administration Triamterene/HCTZ 1 each 08/18/19 21:00 08/18/19 21:30 Maxzide-25 PO 1 each DAILY ALEXEI Administration
[2019-08-20 08:27] VITALS: BP 135/57
--- NOTE | 2019-08-20 08:29 | Progress Note ---
Assessment and Plan Assessment and plan: Patient has 53-year-old female with history of progressive ulceration and gangrene of left 5th following having a pedicure. Has not been healing. Has associated pain. 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 Evidence for persistent thrombus in the left AT therefore infustion of tPA with EKOS was elected overnight. 08/19: Agree with discharge plans as outlined by surgical team. Continue management of diabetes outpatient. Discussed with primary care physician. Peripheral arterial disease Progressive ulceration and gangrene of the left fifth toe Hypertension Type 2 diabetes mellitus Plan Further management per vascular recommendation. Status post [place] Continue blood pressure control and tight glucose control Wound care consultation. DVT and GI prophylaxis History Interval history: Patient seen and examined clinically stable no new complaints. Hospitalist Physical - Physical exam Narrative exam: General appearance: Present: no acute distress, well-nourished - EENT Eyes: Present: PERRL ENT: hearing intact, clear oral mucosa - Neck Neck: Present: supple, normal ROM - Respiratory Respiratory effort: normal Respiratory: bilateral: CTA - Cardiovascular Heart rate: 78 Rhythm: regular Heart Sounds: Present: S1 & S2. Absent: rub, click - Extremities Extremities: pulses symmetrical, No edema Peripheral Pulses: within normal limits - Abdominal General gastrointestinal: Present: soft, non-tender, non-distended, normal bowel sounds Female genitourinary: Present: normal - Integumentary Integumentary: Present: See wound care documentation. Left fifth toe ulcer. Poor wound healing noted. - Musculoskeletal Musculoskeletal: gait normal, strength equal bilaterally - Psychiatric Psychiatric: appropriate mood/affect, intact judgment & insight - Neurologic Neurologic: CNII-XII intact, moves all extremities - Allied Health Allied health notes reviewed: nursing, case management - Constitutional Vitals: Temp Pulse Resp BP Pulse Ox 99.5 F 78 20 135/57 100 08/20/19 08:22 08/20/19 08:22 08/20/19 08:22 08/20/19 08:22 08/20/19 08:22 General appearance: Present: no acute distress Results - Labs CBC & Chem 7: 08/19/19 04:27 08/18/19 10:17 Labs: Laboratory Last Values WBC 9.4 K/mm3 (4.5-11.0) 08/19/19 04:27 RBC 3.19 M/mm3 (3.65-5.03) L 08/19/19 04:27 Hgb 10.7 gm/dl (10.1-14.3) 08/19/19 04:27 Hct 30.8 % (30.3-42.9) 08/19/19 04:27 MCV 97 fl (79-97) 08/19/19 04:27 MCH 34 pg (28-32) H 08/19/19 04:27 MCHC 35 % (30-34) H 08/19/19 04:27 RDW 14.2 % (13.2-15.2) 08/19/19 04:27 Plt Count 174 K/mm3 (140-440) 08/19/19 04:27 PT 12.7 Sec. (12.2-14.9) 08/18/19 10:17 INR 0.97 (0.87-1.13) 08/18/19 10:17 APTT 27.5 Sec. (24.2-36.6) 08/18/19 10:17 Activated Clotting Time 175 (74-137) H 08/19/19 14:24 Fibrinogen 348 mg/dl (211-480) 08/19/19 04:27 Sodium 138 mmol/L (137-145) 08/18/19 10:17 Potassium 4.8 mmol/L (3.6-5.0) 08/18/19 10:17 Chloride 100.8 mmol/L (98-107) 08/18/19 10:17 Carbon Dioxide 26 mmol/L (22-30) 08/18/19 10:17 Anion Gap 16 mmol/L 08/18/19 10:17 BUN 22 mg/dL (7-17) H 08/18/19 10:17 Creatinine 1.2 mg/dL (0.7-1.2) 08/18/19 10:17 Estimated GFR 57 ml/min 08/18/19 10:17 BUN/Creatinine Ratio 18 % 08/18/19 10:17 Glucose 318 mg/dL (65-100) H 08/18/19 10:17 POC Glucose 150 (70-105) H 08/20/19 06:15 Hemoglobin A1c 11.1 % (4-6) H 08/19/19 04:27 Calcium 9.8 mg/dL (8.4-10.2) 08/18/19 10:17 Underwood/IV: Voiding Method Toilet IV Catheter Type [Left Forearm Peripheral IV ] Active Medications - Current Medications Current Medications: Generic Name Dose Route Start Last Admin Trade Name Freq PRN Reason Stop Dose Admin Acetaminophen 650 mg 08/19/19 20:58 08/19/19 21:25 Tylenol PO 650 mg Q6H PRN Administration Pain, Mild (1-3) Clopidogrel Bisulfate 75 mg 08/20/19 10:00 Plavix PO QDAY ALEXEI Diphenhydramine HCl 25 mg 08/19/19 00:07 08/19/19 16:38 Benadryl IV 25 mg Q6H PRN Administration Itching Famotidine 20 mg 08/19/19 11:43 08/19/19 11:43 Pepcid IV 20 mg QDAY ALEXEI Administration Sodium Chloride 500 mls @ 50 mls/hr 08/18/19 11:00 08/18/19 11:08 Nacl 0.9% 500 Ml IV 50 mls/hr DIRECT ALEXEI Administration Morphine Sulfate 4 mg 08/18/19 17:27 08/20/19 05:10 Morphine IV 4 mg Q4H PRN Administration Pain , Severe (7-10) Ondansetron HCl 4 mg 08/18/19 17:29 08/18/19 23:59 Zofran IV 4 mg Q4H PRN Administration Nausea And Vomiting Pravastatin Sodium 20 mg 08/18/19 20:30 08/19/19 21:25 Pravachol PO 20 mg QHS ALEXEI Administration Sertraline HCl 100 mg 08/18/19 21:00 08/18/19 21:25 Zoloft PO 100 mg QDAY ALEXEI Administration Triamterene/HCTZ 1 each 08/18/19 21:00 08/18/19 21:30 Maxzide-25 PO 1 each DAILY ALEXEI Administration
[2019-08-20] MEDS: SERTRALINE 100 MG TAB PO SCH ×2 (09:21→09:25)
[2019-08-20] MEDS: FAMOTIDINE 20 MG/2 ML INJ IV SCH (09:22)
[2019-08-20] MEDS: TRIAMTER/HCTZ 37.5-25 MG TAB PO SCH ×2 (09:23→09:25)
[2019-08-20] MEDS ORDERED: CLOPIDOGREL 75 MG TAB PO SCH (10:00)
--- NOTE | 2019-08-31 07:45 | Operative Report ---
PROCEDURES: Left common iliac artery angioplasty, left SFA and popliteal atherectomy with balloon angioplasty, IVUS initial vessel and additional vessel, ultrasound guidance for vascular access and thrombolysis with EKOS. ANESTHESIA: MAC provided by anesthesia service. MEDICATIONS 10 mL of 1% lidocaine, 10,000 units of heparin, 800 mcg of nitroglycerin, 4 mg of TPA, 125 mL of Visipaque contrast. INDICATION: Left fifth toe ulcer with gangrene. PROCEDURE TECHNIQUE: Following informed written consent, the patient was placed supine on the angiographic table and both groins as well as the left foot were prepped and draped in the usual sterile fashion. Initial ultrasound evaluation demonstrated patency of the right common femoral artery and still image obtained. Lidocaine was used for local anesthetic and ultrasound guidance was utilized to access the right common femoral artery with a micropuncture access set and a 5-Guamanian vascular sheath was placed. The Glidewire was negotiated into the abdominal aorta and a 5-[place]amanian Omniflush catheter positioned within the distal abdominal aorta and initial power injection DSA imaging was performed of the runoff. Crossover technique was performed using the Omniflush catheter and a Glidewire, which was negotiated into the left SFA. Multiple catheters and wires were utilized to cross over to the contralateral side and a 4-[place]amanian vertebral catheter was positioned within the left proximal SFA and DSA imaging to the foot obtained. At this point, a stiff Glidewire was advanced into the SFA and the vertebral catheter removed. A 4 x 20 mm balloon was used to dilate the left common iliac artery. The balloon was then removed and a crossover 6-Guamanian sheath positioned within the left common iliac artery. A V18 guidewire with a crossing catheter was used to cross the area of occlusion in the SFA and popliteal artery. The V18 was exchanged for a 0.014 inch Choice PT guidewire and an IVUS catheter was advanced into the popliteal artery and real time video recording obtained to the external iliac artery. A SpiderFX 5 mm filter was attempted to be advanced into the popliteal artery; however, was unsuccessful due to the angulation and stenosis of the common iliac artery. So, this was removed and then exchanged for a 1.8 mm [place] atherectomy catheter, which also was unable to be advanced distally across the bifurcation. At this point, the sheath while advancing the atherectomy catheter was pushed out of the access site. Therefore, the atherectomy catheter was removed and a 6-Guamanian short sheath placed within the right groin access site. I elected to access the left common femoral artery in an antegrade fashion and a 5-Guamanian vascular sheath was inserted. Again, a crossing catheter with 0.014 inch Choice PT catheter was advanced into the peroneal artery and 1.8 mm [place] atherectomy device was utilized across the area of occlusion. Initially, a 3 x 220 mm balloon was used to dilate the popliteal and SFA segments and then two 4 x 150 mm IN.PACT drug-coated balloons were used to dilate the areas of occlusion. Post-atherectomy and KITCHEN [employer]NER, DSA imaging was performed and at this point, there was evidence for distal occlusion of the anterior tibial artery, which appeared to be secondary to thrombus and possible component of embolus. I attempted to remove the areas of thrombus with a suction catheter, which was unsuccessful. Therefore, EKOS 30 x 106 infusion catheter was advanced into the mid anterior tibial artery following upsizing the groin access sheath to 6-Guamanian. A total of 8 mg of TPA was initially infused and then 8 mg of TPA locked within the catheter. The catheter and sheath were secured to the left groin using suture as well as a Tegaderm device and infusion of TPA was performed per protocol. The patient was then transferred to the ICU unit for overnight infusion and re-evaluation in the morning. The patient was in stable condition with no immediate complications. FINDINGS: There is moderate to severe stenosis of the left common iliac artery with marked stenosis of the right common iliac artery, both greater than 50%. Following balloon angioplasty of the left common iliac artery, there was improvement with less than 50% stenosis. The left external iliac and common femoral arteries are widely patent. The profunda femoris artery is patent. The proximal SFA is mildly diseased without significant stenosis. There is occlusion of the mid superficial femoral artery with reconstitution involving the mid popliteal artery. The distal popliteal artery is patent. There is inline flow of the anterior tibial artery which is diffusely mildly diseased. There is continuous flow into the dorsalis pedis artery with overall limited flow in the foot. There is evidence for occlusion of both tibioperoneal trunk with reconstitution of the peroneal artery and posterior tibial artery proximally via collateral flow from infrageniculate vessels. The posterior tibial artery extends to the ankle with limited flow in the plantar vessels. IVUS evaluation demonstrated size of the SFA and popliteal arteries to be approximately 4 mm. IVUS evaluation also demonstrated extensive mixed plaque within the areas of occlusion with calcified plaque in the common iliac artery. The common iliac artery stenosis was greater than 50% with the maximum size of the vessel being 7 mm. Following atherectomy and balloon angioplasty, there was significant improvement with less than 20% stenosis involving the SFA and popliteal arteries. There was likely combination of embolus and thrombus within the distal anterior tibial arteries, which was unable to be initially removed. Therefore, overnight thrombolysis with EKOS infusion was elected. IMPRESSION: 1. Extensive atherosclerotic disease with mixed plaque and with calcium and organized thrombus. 2. Greater than 50% stenosis involving both common iliac arteries with improved result following balloon angioplasty of the left common iliac artery. 3. 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 4. Inline flow of the anterior tibial artery and dorsalis pedis with poor overall perfusion to the foot. 5. Occlusion of the tibioperoneal trunk with reconstitution of the proximal posterior tibial and peroneal arteries with limited flow in the plantar arteries via the posterior tibial arteries. 6. Embolus/thrombus within the distal anterior tibial artery following intervention, which was unable to be resolved via catheter intervention. Therefore, overnight thrombolysis was performed. 7. The patient will be re-evaluated in the morning for further intervention as needed. JOB# [id number] A/PHILIP
== END 2019-08-20 11:30 | disposition home or self-care (01) | DRG 271 ==
LOC: CATHLABREC 09:47 → CATH 09:47 → CC1 16:48 → 4A 08-19 14:32
PROVIDERS: ADMIT Radiology Vascular & Interventional Radiology; ATTEND Radiology Vascular & Interventional Radiology
PROC: 04CN3ZZ Extirpation of Matter from Left Popliteal Artery, Percutaneous Approach (ICD-10-PCS; principal; 2019-08-18)
PROC: 04CY3ZZ Extirpation of Matter from Lower Artery, Percutaneous Approach (ICD-10-PCS; 2019-08-18)
PROC: 047N3ZZ Dilation of Left Popliteal Artery, Percutaneous Approach (ICD-10-PCS; 2019-08-18)
PROC: 047L3ZZ Dilation of Left Femoral Artery, Percutaneous Approach (ICD-10-PCS; 2019-08-18)
PROC: 047D3ZZ Dilation of Left Common Iliac Artery, Percutaneous Approach (ICD-10-PCS; 2019-08-18)
PROC: 3E05317 Introduction of Other Thrombolytic into Peripheral Artery, Percutaneous Approach (ICD-10-PCS; 2019-08-18)
DX: I70.222 Atherosclerosis of native arteries of extremities with rest pain, left leg (principal); I74.3 Embolism and thrombosis of arteries of the lower extremities; L97.529 Non-pressure chronic ulcer of other part of left foot with unspecified severity; M19.90 Unspecified osteoarthritis, unspecified site; E11.621 Type 2 diabetes mellitus with foot ulcer; E78.5 Hyperlipidemia, unspecified; F17.210 Nicotine dependence, cigarettes, uncomplicated; Z79.899 Other long term (current) drug therapy; Z82.49 Family history of ischemic heart disease and other diseases of the circulatory system
CPT/HCPCS: 36415; 37211; 37214; 37225; 37228; 37232; 37252; 76937; 80048; 82962; 83036; 85027; 85347; 85384; 85610; 85730; 96372; 96374; 96375; 96376; G0378; A9270-GY; C1724; C1725; C1753; C1757; C1760; C1769; C1884; C1887; C1894; C2623; J0690; J1170; J1200; J1644; J1815; J2250; J2270; J2370; J2405; J2704; J2997; J3010; J7030; J7040; Q9967